=== PATIENT | female | born 1985 | race African-American/Black ===

== ENCOUNTER 2024-03-27 04:04 | Emergency (ER) | payer MEDICAID ==
[~2024-03-27] VITALS: Ht 175.3 cm; Wt 165.2 kg
[2024-03-27 04:19] VITALS: BP 175/83; PULSE 72; RESP 16; TEMP 98
[2024-03-27] MEDS ORDERED: LOSA100T33 PO (04:38)
[2024-03-27 04:58] VITALS: O2SAT 87
== END 2024-03-27 05:13 | disposition home or self-care (01) ==
LOC: ER 04:04
DX: I10 Essential (primary) hypertension (principal); Z76.0 Encounter for issue of repeat prescription; Z88.1 Allergy status to other antibiotic agents

== ENCOUNTER 2024-08-21 21:04 | Emergency (ER) | payer MEDICAID ==
[~2024-08-21] VITALS: Ht 175.3 cm; Wt 159.1 kg
[~2024-08-21 21:04] MED LIST: LOSA100T33 PO
[2024-08-21 21:51] VITALS: BP 154/74; PULSE 72; RESP 16; TEMP 98.7; O2SAT 96
[2024-08-21] MEDS: DexAMETHasone SOD PHOS 10MG/1ML VIAL INJ IM ONE (23:18)
[2024-08-21] MEDS: KETOROLAC TROMETH 60MG/2ML VIAL IM ONE (23:18)
[2024-08-21] MEDS ORDERED: TIZA4TAB9 PO (23:35)
[2024-08-21] MEDS ORDERED: METH4PAK PO (23:35)
== END 2024-08-21 23:57 | disposition home or self-care (01) ==
LOC: ER 21:04
DX: S33.5XXA Sprain of ligaments of lumbar spine, initial encounter (principal); M54.16 Radiculopathy, lumbar region; I10 Essential (primary) hypertension; Z79.899 Other long term (current) drug therapy; Z88.6 Allergy status to analgesic agent; X58.XXXA Exposure to other specified factors, initial encounter; Y93.89 Activity, other specified; Y92.89 Other specified places as the place of occurrence of the external cause; Y99.8 Other external cause status
CPT/HCPCS: 96372; 99284; J1100; J1885